=== PATIENT | male | born 1985 | race Hispanic/Latino ===

== ENCOUNTER 2017-03-29 14:43 | Emergency (ER) | payer SELFPAY ==
[~2017-03-29] VITALS: Ht 167.6 cm; Wt 84.1 kg
[2017-03-29 14:49] VITALS: BP 115/70; PULSE 73; RESP 16; O2SAT 98
--- NOTE | 2017-03-29 15:04 | ED.REPORT ---
HPI-Extremity Problem Upper Date of Service Mar 29, 2017 ED Provider: History of Present Illness: 31-year-old male here for left elbow injury. Was seen at [facility] this morning and sent here for management of the fracture. He was playing soccer last night and fell onto his elbow. Did not continue playing in the game, he had immediate pain. It was worse this morning and was evaluated by his PCP. Is otherwise healthy, no previous injuries of his left elbow. Denies numbness and tingling. He cannot straighten elbow. Pain is mild though it is still. Nursing Notes Stated Complaint: LEFT ELBOW FRACTURE/SENT FROM [facility] Chief Complaint: Extremity Trauma Nursing Notes Reviewed: Yes Allergies: Coded Allergies: No Known Allergies (Unverified , 03/29/17) General Time Seen by MD: 14:54 Chief Complaint Elbow injury left Hx Obtained From: Patient Arrived By: Walk-in Onset Occurred: 1 day ago Symptom Duration: Since onset Caused by: Fall from height... (3-6 feet) Location: : Elbow left Severity: Current: Mild Severity: Maximum: Severe Pertinent Negative: Pt denies other symptoms Exacerbated by: Range of motion Immunizations: All up to date Recent Healthcare: No recent doctor visit Similar Sx Previous: No Past Medical History Past Medical History Notes: Healthy Review of Systems Basic Review of Systems Eyes: Vision NL, No discharge ENT: Hearing NL, No pain, No nasal congestion, No pharyngeal pain Respiratory: No shortness of breath, No cough, No wheeze Cardiovascular: No chest pain, No dyspnea on exertion, No orthopnea, No parox noct dyspnea, No palpitations GI: No abdominal pain, No anorexia, No nausea, No vomiting Musculoskeletal: Reports: Extremity pain, Extremity swelling Physical Exam Initial Vital Signs Vital Signs (First) Date Time Temp Pulse Resp B/P Pulse Ox O2 Delivery O2 Flow Rate FiO2 03/29/17 14:49 36.6 73 16 115/70 98 Room Air Initial VS: Reviewed, Vital signs normal General/Constitutional: Well-developed, Well-nourished Head / Eyes: Atraumatic, Normocephalic, PERRL ENT: Mucous membranes moist, Conjunctiva normal, No scleral icterus Respiratory: Breath sounds normal, Clear to auscultation, No respiratory distress Cardiovascular: Regular rate & rhythm, Heart sounds normal, Intact distal pulses Skin: Warm, Dry, No cyanosis Neurologic: Alert, Oriented, Nonfocal Psychiatric: Mood/affect normal, Behavior normal, Normal thought content [id number] swelling of left elbow. Patient cannot straighten arm due to pain. Generalized tenderness is mild. Radial pulses present. Has full range of motion of his fingers. Interpretation & Diagnostics X-Ray Interpretation Xray Interpretation: te of Service: 03/29/17 1021 PROCEDURE: X-RAY LEFT ELBOW, TWO VIEWS ([id number]) INDICATIONS: LEFT ELBOW PAIN/ASSESS FRACTURE/DISLOCATION TECHNIQUE: 3 views of the elbow were acquired. COMPARISON: None. FINDINGS: Bones: No dislocations. No suspicious bony lesions. There is a fracture involving the radial head, mildly impacted but not significantly displaced and this fracture extends into the articular surface. Soft tissues: Moderately large elbow joint effusion. No suspicious soft tissue calcifications. IMPRESSION: Impacted radial head fracture, moderately large associated acute joint effusion. Re-Eval/Medical Decision Med Decision/Clinical Course Discussed x-ray with Dr. Amador orthopedist. do sling and follow-up in one week Discharge & Departure Shift Change Sign-Out Imaging Studies: Imaging discussed Procedures: Results discussed Impression: Primary Impression: Fracture of radial head, left, closed Encounter type: initial encounter Fracture alignment: nondisplaced Qualified Code: S52.125A - Nondisplaced fracture of head of left radius, initial encounter for closed fracture Disposition: Home Discharge Condition All VS Reviewed: Yes Condition: Stable Patient Instructions: Elbow Fracture (DC) Additional Instructions: Wear your sling around the clock until seen by orthopedist. Make appointment in one week, you were given the number in this paperwork. Use ibuprofen 800 mg 3 times a day and Tylenol 1 g 3 times a day as needed for pain. Return immediately if severe pain or swelling or your condition worsens. Apply ice to elbow to help control swelling as well. Referrals: NOPCP (PCP) Sandip Amador DO EDSupervising Provider for APC: Javier Rueda MD copies to: Sandip Amador Linnea K ARNP Mar 29, 2017 15:04
[2017-03-29 16:45] VITALS: BP 109/70; PULSE 61; RESP 16; O2SAT 99
== END 2017-03-29 16:17 | disposition home or self-care (01) ==
LOC: SED 14:43
DX: S52.125A Nondisplaced fracture of head of left radius, initial encounter for closed fracture (principal); W17.89XA Other fall from one level to another, initial encounter; Y93.66 Activity, soccer; Y92.89 Other specified places as the place of occurrence of the external cause; Y99.8 Other external cause status